=== PATIENT | female | born 1965 | race Two or more races ===

== ENCOUNTER 2020-08-13 12:07 | Emergency (ER) | payer BC ==
[~2020-08-13] VITALS: Ht 162.6 cm; Wt 73.8 kg
[2020-08-13 12:32] LABS: BASOPHILS % (AUTO) 1 % (0-1); EOSINOPHILS % (AUTO) 4 % (1-7); LYMPHOCYTES % (AUTO) 32 % (22-44); MEAN CORPUSCULAR HEMOGLOBIN 29.3 pg (27.0-34.8); MEAN CORPUSCULAR HGB CONC 33.1 g/dL (32.4-35.8); MEAN PLATELET VOLUME 7.1 fL (7.4-10.4); MONOCYTES % (AUTO) 8 % (2-9); NEUTROPHILS % (AUTO) 55 % (42-75); PLATELET COUNT 364 x10^3/uL (130-400); RED BLOOD COUNT 4.98 x10^6/uL (3.82-5.3); RED CELL DISTRIBUTION WIDTH 12.4 % (9.6-15.2)
[2020-08-13 12:33] LABS: MD NO
[2020-08-13 12:44] LABS: ALBUMIN 3.9 g/dL (3.4-5.0); ANION GAP 5 mmol/L (5-15); CALCIUM 9.1 mg/dL (8.5-10.1); CHLORIDE 107 mmol/L (98-107)
[2020-08-13 12:50] LABS: ALANINE AMINOTRANSFERASE 26 U/L (12-78); ALKALINE PHOSPHATASE 87 U/L (45-117); BILIRUBIN,TOTAL 0.1 mg/dL (0.2-1.0); CREATININE 0.71 mg/dL (0.55-1.02); TOTAL PROTEIN 7.9 g/dL (6.4-8.2); TROPONIN I < 0.015 ng/mL (0.000-0.045)
--- NOTE | 2020-08-13 13:01 | NUR ---
Vanda banda in ED - 08/13/20 at 1323 by SELAM MEDIA PLANNER: PT TO ROOM FROM HEMA
--- NOTE | 2020-08-13 13:22 | NUR ---
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
[2020-08-13] MEDS ORDERED: OMNIPAQUE 350 MG/ML, 100ML BOTTLE ONE (13:45)
[2020-08-13] MEDS ORDERED: MORPHINE SULFATE 4 MG/ML, 1ML ONE (13:50)
[2020-08-13] MEDS ORDERED: MORPHINE SULFATE 4 MG/ML, 1ML IVPush PRN (14:00)
[2020-08-13] MEDS ORDERED: SODIUM CHLORIDE FLUSH 10ML SYR IVF ONE (14:00)
[2020-08-13] MEDS ORDERED: LABETALOL 5MG/ML, 20ML IVPush ONE (14:00)
[2020-08-13] MEDS ORDERED: LABETALOL 20 MG/4 ML ONE (14:04)
--- NOTE | 2020-08-13 14:09 | NUR ---
SPOKE WITH DR SAMPSON, PROVIDER WANTS LABETALOL GIVEN
--- NOTE | 2020-08-13 14:27 | NUR ---
PT IN CT
--- NOTE | 2020-08-13 14:36 | NUR ---
PT BACK FROM CT. NO ACUTE DISTRESS NOTED. VS STABLE. SURGEON/PRESIDENT ON. AT BEDSIDE. CALL LIGHT IN PLACE. WILL CONTINUE TO MONITOR.
--- NOTE | 2020-08-13 15:21 | NUR ---
PT RESTING IN ROOM. REGULAR RESP. NO ACUTE DISTRESS NOTED. CALL LIGHT IN PLACE. WILL CONTINUE TO MONITOR.
[2020-08-13 16:00] VITALS: BP 102/65
== END 2020-08-13 16:01 | disposition home or self-care (01) ==
LOC: ED 13:47
DX: S39.012A Strain of muscle, fascia and tendon of lower back, initial encounter (principal); R07.2 Precordial pain; R51.9 Headache, unspecified; R07.89 Other chest pain; I10 Essential (primary) hypertension; E78.00 Pure hypercholesterolemia, unspecified; X58.XXXA Exposure to other specified factors, initial encounter; Y93.89 Activity, other specified; Y92.89 Other specified places as the place of occurrence of the external cause; Y99.8 Other external cause status
CPT/HCPCS: 36415; 70450; 71046; 71275; 74175; 80053; 84484; 85025; 93005; 96374; 96375; 99285; J2270; Q9967